=== PATIENT | female | born 1980 | race Hispanic/Latino ===

== ENCOUNTER 2019-01-13 19:45 | Inpatient (IN) ==
[2019-01-13 20:05] LABS: BASO# 0.05 X1000 (0.0-0.2); BASO% 0.7 % (0.0-0.8); EOS# 0.07 X1000 (0.0-0.7); HEMATOCRIT 34.3 % (37.0-47.0); HEMOGLOBIN 11.5 g/dL (12.0-16.0); LYMPH# 3.28 X1000 (1.2-3.4); MCH 27.8 PG (27-31); MCHC 33.5 g/dL (33-37); MCV 83.1 FL (81-99); MONO# 0.62 X1000 (0.11-0.59); MONO% 9.3 % (1.7-9.3); MPV 10.7 FL (7.4-10.4); NEUT# 2.68 X1000 (1.4-6.5); PLT 273 X1000 (130-400); RBC 4.13 XMIL (4.2-5.4); RDW 14.1 % (11.5-14.5)
[2019-01-13 20:37] LABS: BILIRUBIN URINE NEGATIVE (NEGATIVE); BLOOD URINE NEGATIVE (NEGATIVE); CLARITY CLEAR (CLEAR); COLOR YELLOW; GLUCOSE URINE NEGATIVE (NEGATIVE); KETONE URINE NEGATIVE (NEGATIVE); LEUKOCYTES URINE NEGATIVE (NEGATIVE); NITRITE URINE NEGATIVE (NEGATIVE); PROTEIN URINE NEGATIVE (NEGATIVE); UROBILINOGEN URINE NORMAL
[2019-01-13 20:43] LABS: UR AMPHETAMINES QUAL NONE DETECTED (NONE DETECT); UR BARBITUATES QUAL NONE DETECTED (NONE DETECT); UR BENZODIAZEPIN QUAL NONE DETECTED (NONE DETECT); UR CANNABINOIDS QUAL NONE DETECTED (NONE DETECT); UR COCAINE QUAL NONE DETECTED (NONE DETECT); UR METHADONE QUAL NONE DETECTED (NONE DETECT); UR METHAMPHETAMINE QUAL NONE DETECTED (NONE DETECT); UR OPIATES QUAL NONE DETECTED (NONE DETECT); UR OXYCODONE QUAL NONE DETECTED (NONE DETECT); UR PCP QUAL NONE DETECTED (NONE DETECT); UR PROPOXYPHENE QUAL NONE DETECTED (NONE DETECT); UR TCA QUAL NONE DETECTED (NONE DETECT)
[2019-01-13 20:50] LABS: URINE BACTERIA NEGATIVE /HFP; URINE EPITHELIAL CELLS <10 /HPF (<10); URINE YEAST NONE SEEN /HPF
[2019-01-13 20:51] LABS: URINE CAST NONE SEEN /LPF; URINE CRYSTAL NONE SEEN /HPF; URINE SOURCE CATH
--- NOTE | 2019-01-13 21:07 | PROVIDER DOCUMENTATION ---
This chart was entered by Keena Yen Scribe, acting as scribe for Melissa Salgado MD. [id number] Abuse/Overdose - General Chief Complaint: Overdose Stated Complaint: OD Time Seen by Provider: 01/13/19 19:45 Source: family, EMS Allergies/Adverse Reactions: Allergies Allergy/AdvReac Type Severity Reaction Status Date / Time No Known Allergies Allergy Verified 05/03/18 05:06 Home Medications: Home Medication List Medication Instructions Recorded Confirmed Last Taken Type Amoxicillin/Potassium Clav 1 ea PO BID #20 tab 04/30/18 05/03/18 Unknown Rx [Augmentin 875-125 Tablet] Dicyclomine HCl 20 mg PO Q6H PRN PRN #20 tab 04/30/18 05/03/18 Unknown Rx Omeprazole 20 mg PO DAILY #20 tablet. 04/30/18 05/03/18 Unknown Rx Ondansetron [Ondansetron Odt] 4 mg PO Q6-8H PRN PRN #20 04/30/18 05/03/18 Unknown Rx tab.rapdis Hydrocodone/APAP 7.5 mg/325 mg 7.5 mg PO Q4H PRN #20 tab 05/09/18 Unknown Rx [[place]-7.5] - History of Present Illness-Drug/Alcohol Nature of Presenting Problem: 38 yof presents w/daughter to er w/ daughter and ems who are historians. ems sts intentional od [employer]. pt had pills in mouth still when found. pt daughter sts there is family stress going on, daughter is going to live with her dad and stepmom. daughter sts pt told her boyfriend she loved him and he asked what she was doing and she had ingested pills and still had some in mouth. pt had empty containers of omeprazole 20mg (prescribed 05-01-18) and 40mg (prescribed 02-05), tessalon 100mg (prescribed 07-03-18) and bentyl 20mg (prescribed 05-01-18) near her, no other pills found and no other medications available to pt. On arrival pt alert and interactive. speaks only lao but appears oriented and appropriate to family who are translating for pt Review of Systems - Adult - REVIEW OF SYSTEMS - ADULT Constitutional: reports: no symptoms reported. denies: chills, fever, fatique Eyes: reports: no symptoms reported Ears, Nose, Mouth & Throat: reports: no symptoms reported Cardiovascular: reports: no symptoms reported Respiratory: reports: no symptoms reported Gastrointestinal: reports: no symptoms reported Genitourinary: reports: no symptoms reported Musculoskeletal: reports: no symptoms reported Integumentary: reports: no symptoms reported Neurological: reports: no symptoms reported Psychiatric: reports: see HPI, emotional problems (family stress), other ( intentional OD). denies: anti-depressant use, alcohol/drug dependence, depression Endocrine: reports: no symptoms reported Hematologic/Lymphatic: reports: no symptoms reported Allergic/Immunologic: reports: no symptoms reported All Other Systems: Reviewed and Negative Past History - Adult - PAST MEDICAL HISTORY-ADULT Review of Records: reports: Old Records Reviewed, Nursing Assessment Review, Medications Reviewed, Social history reviewed & non-contributory. Major Childhood Illnesses: reports: denies history Cardiovascular: reports: denies history Respiratory: reports: denies history Gastrointestinal: reports: denies history Obstetrical/Gynecological: reports: denies history Genitourinary: reports: denies history Musculoskeletal: reports: denies history Neurological: reports: denies history Psychiatric: reports: depression Endocrine/Immune: reports: denies history Other Conditions: reports: denies history - PRIOR SURGERIES/PROCEDURES Surgical/Procedure History: reports: BTL, - IMMUNIZATION STATUS Childhood Immunizations: See Nurse Assessment Flu Vaccine: See Nurse Assessment - FAMILY HISTORY Family History: reviewed, not pertinent - SOCIAL HISTORY Smoking: non-smoker Substance Use: alcohol Alcohol Use Frequency: occasionally Physical Exam-General - PHYSICAL EXAM-ADULT Initial Vital Signs Reviewed: Yes - CONSTITUTIONAL General Appearance: alert, no apparent distress. negative: obtunded, combative - EYES Eyes: PERRL/EOMI, pink conjunctivae - HEAD, EARS, NOSE, MOUTH & THROAT HENMT: normocephalic/atraumatic, moist mucous membranes, normal ENT inspection - NECK Neck: non-tender, full range of motion, supple, normal inspection - RESPIRATORY Respiratory: chest non-tender, lungs clear, normal breath sounds - CARDIOVASCULAR Cardiovascular: normal peripheral pulses, regular rate, rhythm - GASTROINTESTINAL (ABDOMEN) Abdominal Exam: normal bowel sounds, non tender, soft - LYMPHATIC Lymphatic: no adenopathy - MUSCULOSKELETAL Back Exam: normal inspection, no CVA tenderness, no vertebral tenderness Extremity: normal range of motion, non-tender, normal inspection Peripheral Pulses: radial (R): 2+, radial (L): 2+ - SKIN Integumentary: normal color, normal turgor, warm/dry - NEUROLOGIC Neurologic: grossly normal, no motor/sensory deficits - PSYCHIATRIC Psych/Mental Status: normal mood/affect, normal thought content, normal thought process, oriented x 3 Progress - PLAN OF CARE/RESULTS Progress/Plan/Lab Results: Vital Signs - 8 hr 01/13/19 19:46 Temperature 97.9 F Pulse Rate 68 Respiratory Rate 12 Blood Pressure 144/69 O2 Sat by Pulse Oximetry 100 Laboratory Results - last 24 hr 01/13/19 01/13/19 01/13/19 19:50 19:54 19:54 WBC 6.70 RBC 4.13 L Hgb 11.5 L Hct 34.3 L MCV 83.1 MCH 27.8 MCHC 33.5 RDW Std Deviation 14.1 Plt Count 273 MPV 10.7 H Immature Gran % (Auto) 0.0 Neut % (Auto) 40.0 L Lymph % (Auto) 49.0 [place] % (Auto) 9.3 Eos % (Auto) 1.0 Baso % (Auto) 0.7 Immature Gran # (Auto) 0.00 Neut # (Auto) 2.68 Lymph # (Auto) 3.28 Eagle # (Auto) 0.62 H Eos # (Auto) 0.07 Baso # (Auto) 0.05 Sodium Potassium Chloride Carbon Dioxide Anion Gap BUN Creatinine Estimated GFR/1.73 m2 BUN/Creatinine Ratio Glucose Calculated Osmolality Calcium Total Bilirubin AST ALT Alkaline Phosphatase Total Protein Albumin Globulin Albumin/Globulin Ratio Urine Source CATH Urine Color YELLOW Urine Clarity CLEAR Urine pH 7.0 Ur Specific [place] 1.000 Urine Protein NEGATIVE Urine Ketones NEGATIVE Urine Blood NEGATIVE Urine Nitrite NEGATIVE Urine Bilirubin NEGATIVE Urine Urobilinogen NORMAL Urine Microscopic RBC Not Reportable Urine WBC NEGATIVE Ur Epithelial Cells <10 Urine Crystals NONE SEEN Urine Bacteria NEGATIVE Urine Casts NONE SEEN Urine Yeast NONE SEEN Urine Glucose NEGATIVE Salicylates Urine Opiates Screen NONE DETECTED Ur Oxycodone Screen NONE DETECTED Urine Methadone Screen NONE DETECTED U Propoxyphene Qual NONE DETECTED Acetaminophen Ur Barbituates Screen NONE DETECTED Ur Tricyclics Screen NONE DETECTED Ur Phencyclidine Scrn NONE DETECTED Ur Amphetamines Screen NONE DETECTED U Methamphetamines Scrn NONE DETECTED U Benzodiazepines Scrn NONE DETECTED Urine Cocaine Screen NONE DETECTED U Cannabinoids Screen NONE DETECTED Plasma/Serum Ethyl Alc 05/26/19 05/26/19 20:30 20:30 WBC RBC Hgb Hct MCV MCH MCHC RDW Std Deviation Plt Count MPV Immature Gran % (Auto) Neut % (Auto) Lymph % (Auto) [place] % (Auto) Eos % (Auto) Baso % (Auto) Immature Gran # (Auto) Neut # (Auto) Lymph # (Auto) [place] # (Auto) Eos # (Auto) Baso # (Auto) Sodium 141 Potassium 3.6 Chloride 105 Carbon Dioxide 25 Anion Gap 10 BUN 10 Creatinine 0.5 Estimated GFR/1.73 m2 > 60 BUN/Creatinine Ratio 20 Glucose 98 Calculated Osmolality 280 Calcium 8.5 L Total Bilirubin 1.00 AST 16 ALT 11 Alkaline Phosphatase 63 Total Protein 7.2 Albumin 4.2 Globulin 3.0 Albumin/Globulin Ratio 1.0 Urine Source Urine Color Urine Clarity Urine pH Ur Specific [place] Urine Protein Urine Ketones Urine Blood Urine Nitrite Urine Bilirubin Urine Urobilinogen Urine Microscopic RBC Urine WBC Ur Epithelial Cells Urine Crystals Urine Bacteria Urine Casts Urine Yeast Urine Glucose Salicylates < 3.00 L Urine Opiates Screen Ur Oxycodone Screen Urine Methadone Screen U Propoxyphene Qual Acetaminophen < 1.2 L Ur Barbituates Screen Ur Tricyclics Screen Ur Phencyclidine Scrn Ur Amphetamines Screen U Methamphetamines Scrn U Benzodiazepines Scrn Urine Cocaine Screen U Cannabinoids Screen Plasma/Serum Ethyl Alc Orders Category Date Time Status Admit [facility] Routine AdmDCTranf 01/13/19 21:37 Active Call Admitting on Arrival AT ADMISSION Care 01/13/19 21:38 Active Cardiac Monitoring DIRECTED Care 01/13/19 21:41 Active IV Insertion ORDERED Care 01/13/19 19:51 Active Neurological Check Q2H Care 01/13/19 21:37 Active Vital Signs Order ROUTINE Care 01/13/19 21:37 Active Sitter List [OM.CSS] Stat Cons 01/13/19 21:41 Active ACETAMINOPHEN [TDM] Stat Lab 01/13/19 20:30 Completed ALCOHOL BLOOD Stat Lab 01/13/19 20:30 Completed BASIC METABOLIC PANEL [CHEM] Timed Lab 01/14/19 06:00 Ordered CBC WITH DIFF [HEME] Stat Lab 01/13/19 19:50 Completed CBC WITH ELECTRONIC DIFF [HEME] Timed Lab 01/14/19 06:00 Ordered COMPREHENSIVE METABOLIC PANEL [CHEM] Stat Lab 01/13/19 20:30 Completed SALICYLATES [TDM] Stat Lab 01/13/19 20:[address] W/POSS RFLX CULT [URINALYSIS] Stat Lab 01/13/19 19:54 Completed URINE DRUG SCREEN PL Stat Lab 01/13/19 19:54 Completed EKG [EKG] RTQ6H Ther 01/14/19 10:00 Ordered EKG [EKG] RTQ6H Ther 01/14/19 16:00 Ordered EKG [EKG] RTQ6H Ther 01/14/19 22:00 Ordered Transfer/Admit Order [TRANSFER] Routine Transfer 01/13/19 21:40 Ordered intentional overdose pt alert and oriented and with stable vitals. Will closely observe and will further evaluate for co-ingestants. Result Diagrams: 01/13/19 19:50 01/13/19 20:30 - REASSESSMENT Reassessment #1 Status: worsening (Pt now confused and appears to be responding to visual hallucinations. Family states pt is not making sense and taking about parties. Appears to be having anticholinergic symtpoms. No tachycardia or hypertension. no EKG changes. Discussed case with poison control who feel that these symptoms are likley from bentyl as these can cause anticholinergic type symptoms. other ingestants are non toxic. recommend admission with continuous cardiac monitoring until symptoms clear. Discussed case with Dr. Alberts, hospitalist, who accepts pt for admission and asks that floor orders be placed) - EKG 1 Time of EKG reading by physician:: 19:51 EKG Read and Signed by:: Melissa Salgado EKG Interpretation (*Must complete 3 of following elements*): Abnormal Rate: 67 Rhythm: SR w/1st degree av block [place]: normal QRS: normal NE Interval: prolonged ST Wave: normal Comments: poss left atrial enlargement Departure - Departure Date of Disposition Decision: 01/13/19 Time of Disposition Decision: 21:57 DIAGNOSIS: Overdose Qualifiers: Encounter type: initial encounter Injury intent: intentional self-harm Qual ified Code(s): T50.902A - Poisoning by unspecified drugs, medicaments and biological substances, intentional self-harm, initial encounter Disposition: ADMITTED INPATIENT 09 Certified Medical Emergency: Emergent Condition: Serious Referrals and Follow-Ups: None,PCP [Primary Care Provider] - - Critical Care Note This patient required my direct & personal management of CC.: Yes Total Time (mins): 35 Critical Care Statement: This patient required my direct personal management to treat or rule out processes, the absence of which, could potentiallly result in sudden, clinically significant life or limb threatening deterioration. Attestation - Physician/ ARMAAN Attestation Patient care was provided by Advanced Practice Provider:: No The physician spent face to face time with patient:: Yes Advanced Practice Provider documentation review:: Supervising physician onsite and consulted in the evaluation and care of this patient. The physician did have a face to face encounter with the patient. This chart was documented by the indicated scribe, (Keena Yen, Katerine) and accurately reflects the services I performed and decisions made by me, Melissa Salgado MD, as attested by the provider's signature.
[2019-01-13 21:10] LABS: ACETAMINOPHEN < 1.2 ug/mL (10-30); AGAP 10; ALBUMIN 4.2 g/dL (3.5-5.0); ALKALINE PHOSPHATASE 63 U/L (32-104); BUN 10 mg/dL (8-22); CALCIUM 8.5 mg/dL (8.8-10.2); CHLORIDE 105 mmol/L (98-107); COSMO 280; CREATININE 0.5 mg/dL (0.5-0.9); ESTIMATED GFR > 60; GLUCOSE 98 mg/dL (70-104); GOT 16 U/L (10-30); GPT 11 U/L (10-36); POTASSIUM 3.6 mmol/L (3.5-5.1); SALICYLATES < 3.00 mg/dL (3-10); SODIUM 141 mmol/L (136-145); TCO2 25 mmol/L (25-35); TOTAL PROTEIN 7.2 g/dL (6.3-8.3)
[2019-01-14 07:24] LABS: BASO# 0.02 X1000 (0.0-0.2); BASO% 0.4 % (0.0-0.8); EOS# 0.05 X1000 (0.0-0.7); EOS% 0.9 % (0.0-10.0); HEMATOCRIT 33.6 % (37.0-47.0); HEMOGLOBIN 10.6 g/dL (12.0-16.0); IMM GRAN# 0.01 X1000 (0.0-0.04); IMM GRAN% 0.2 % (0.0-0.5); LYMPH# 1.53 X1000 (1.2-3.4); LYMPH% 27.8 % (20.5-51.1); MCH 26.4 PG (27-31); MCHC 31.5 g/dL (33-37); MCV 83.6 FL (81-99); MONO# 0.48 X1000 (0.11-0.59); MONO% 8.7 % (1.7-9.3); MPV 10.8 FL (7.4-10.4); NEUT# 3.41 X1000 (1.4-6.5); PLT 270 X1000 (130-400); RBC 4.02 XMIL (4.2-5.4); RDW 14.3 % (11.5-14.5)
[2019-01-14 07:31] LABS: AGAP 11; BUN 10 mg/dL (8-22); CALCIUM 8.3 mg/dL (8.8-10.2); CHLORIDE 108 mmol/L (98-107); COSMO 281; CREATININE 0.5 mg/dL (0.5-0.9); ESTIMATED GFR > 60; GLUCOSE 81 mg/dL (70-104); POTASSIUM 3.6 mmol/L (3.5-5.1); SODIUM 142 mmol/L (136-145); TCO2 24 mmol/L (25-35)
[2019-01-14] MEDS ORDERED: ZOFRAN IV PRN (07:52)
[2019-01-14] MEDS: NS 1,000 ML IV SCH ×2 (08:59→11:00)
[2019-01-14] MEDS: CARAFATE LIQUID PO SCH ×3 (08:59→21:17)
[2019-01-14] MEDS ORDERED: NS 1,000 ML IV SCH (10:00)
--- NOTE | 2019-01-14 11:01 | EKG Report ---
Test Performed on : 01/14/2019 10:55:14 AM Test Reason : overdose Blood Pressure : / mmHG Vent. Rate : 066 BPM Atrial Rate : 066 BPM P-R Int : 184 ms QRS Dur : 072 ms QT Int : 424 ms P-R-T Axes : 072 088 057 degrees QTc Int : 444 ms Normal sinus rhythm. Normal ECG When compared with ECG of 13-JAN-2019 19:48, (Unconfirmed) ID interval has decreased Unconfirmed Result
--- NOTE | 2019-01-14 13:01 | HISTORY AND PHYSICAL ---
CHIEF COMPLAINT: Overdose. HISTORY OF PRESENT ILLNESS: This is a 38-year-old female who presented to the emergency room via EMS after being called by family members. At the time of my evaluation, the patient is lying on the bed in ICU. She does not speak Congolese well, refuses to use a language line. There are no family members present, so history is taken from the chart and the nursing staff. Evidently, the patient became very upset after finding that her daughter was going to live with her father and her stepmother. Reportedly, the patient told her boyfriend she loved him and took pills. The pills were in her mouth. Reportedly at this time she informed her boyfriend that she had taken pills. In fact, she still has some in her mouth. It is unsure of how many she took or at what time she took these. It is reported that she had empty containers of omeprazole 20 mg, omeprazole prescribed 05/01/2018, Bentyl 20 mg prescribed 05/01/2018, omeprazole 40 mg prescribed January 2018, and Tessalon Perles 100 mg prescribed 07/03/2018, although we are unsure how many had been taken prior. PAST MEDICAL HISTORY: Reported to be depression. PAST SURGICAL HISTORY: 1. . 2. Tubal ligation. SOCIAL HISTORY: She denies tobacco use. Social alcohol use and no illicit drug use. ALLERGIES: None reported. HOME MEDICATIONS: No regular medications reported. REVIEW OF SYSTEMS: Unable to obtain from the patient at this time as she continues to refuse to use language line and no family members are present. According to the chart, in the ER, the patient and family members stated that all systems are negative except for family stress. PHYSICAL EXAMINATION: GENERAL: This is a 38-year-old female who is lying in the bed in ICU in no distress. VITAL SIGNS: Blood pressure is 101/52 with a heart rate of 86, respirations 18, temperature is 99.2 degrees temporal with room air saturations 99%. EYES: Pupils are equal, round, react to light. EOMs are intact. Sclerae are anicteric. HEENT: Head is normocephalic, atraumatic. Mucous membranes are moist. NECK: Supple with trachea midline. CARDIOVASCULAR: Regular rate and rhythm. S1 and S2 appreciated. She has no lower extremity edema with peripheral pulses palpable x4 extremities. PULMONARY: Breath sounds are clear with no increased work of breathing noted. Chest rises and falls with symmetric respiration. Chest wall is nontender to palpation. GASTROINTESTINAL: Abdomen is soft, nontender, nondistended. Bowel sounds in all 4 quadrants. GENITOURINARY: She has no CVA or suprapubic tenderness. SKIN: Warm and dry. NEUROLOGIC: The patient is awake and alert. She moves extremities at random. She has limited Congolese. She does follow simple commands as given. LABORATORY DATA: WBC is 6.7 with hemoglobin 11.5, hematocrit 34.3, and platelets of 273,000. Sodium is 141, potassium 3.6, BUN 10, creatinine 0.5 with a glucose of 98. Urinalysis is essentially negative. Urine drug screen reveals none detected. Blood alcohol reveals none detected with salicylate less than 3 and acetaminophen less than 1.2. EKG revealed sinus rhythm at a rate of 66. ASSESSMENT AND PLAN: 1. Intentional overdose with unknown medications which could have consisted of Tessalon Perles, Bentyl and omeprazole. We will monitor for any anticholinergic overdose. We discuss with poison Control. Once she is medically cleared, we will call [facility] for evaluation. We will repeat a CBC and CMP this morning. Take neuro checks q.4 hours. 2. For deep venous thrombosis prophylaxis, will use sequential compression devices. 3. Nausea, vomiting. Will give use Carafate liquid as well as Zofran IV. 4. Gastrointestinal prophylaxis. We will start Protonix in the morning. Of course, we will continue telemetry. As there is a chance of anticholinergic overdose, will scan her bladder for any signs of urinary retention. Further treatments pending hospital course and discussion with Dr. Cid. Dictated by SUHAIL Johnson for Javon Cid MD cc: SUHAIL Johnson MD
--- NOTE | 2019-01-14 14:59 | HISTORY AND PHYSICAL ---
Patient seen and examined by me. Full note dictated and discussed with nurse practitioner. Patient through translation had an intentional overdose with Bentyl, omeprazole, and Tessalon Perles. We will admit her to the hospital ICU, place her on telemetry, observe her for withdrawal symptoms, and we will follow. On discharge, she will need evaluation by [facility]. cc: Javon Cid MD
--- NOTE | 2019-01-14 16:20 | EKG Report ---
Test Performed on : 01/14/2019 3:35:41 PM Test Reason : Q6 HR Blood Pressure : / mmHG Vent. Rate : 067 BPM Atrial Rate : 067 BPM P-R Int : 182 ms QRS Dur : 078 ms QT Int : 396 ms P-R-T Axes : 068 074 045 degrees QTc Int : 418 ms Normal sinus rhythm. Normal ECG When compared with ECG of 14-JAN-2019 10:55, (Unconfirmed) No significant change was found Unconfirmed Result
[2019-01-15] MEDS: NS 1,000 ML IV SCH (00:08)
[2019-01-15] MEDS: CARAFATE LIQUID PO SCH ×3 (01:26→14:07)
--- NOTE | 2019-01-15 03:46 | EKG Report ---
Test Performed on : 01/14/2019 10:22:11 PM Test Reason : overdose Blood Pressure : / mmHG Vent. Rate : 075 BPM Atrial Rate : 075 BPM P-R Int : 194 ms QRS Dur : 076 ms QT Int : 394 ms P-R-T Axes : 068 056 048 degrees QTc Int : 439 ms Poor data quality, interpretation may be adversely affected Normal sinus rhythm. Normal ECG When compared with ECG of 14-JAN-2019 15:35, (Unconfirmed) No significant change was found Unconfirmed Result
[2019-01-15 06:52] LABS: BASO# 0.03 X1000 (0.0-0.2); BASO% 0.6 % (0.0-0.8); EOS# 0.09 X1000 (0.0-0.7); EOS% 1.7 % (0.0-10.0); HEMATOCRIT 29.4 % (37.0-47.0); HEMOGLOBIN 9.4 g/dL (12.0-16.0); IMM GRAN# 0.01 X1000 (0.0-0.04); IMM GRAN% 0.2 % (0.0-0.5); LYMPH# 1.99 X1000 (1.2-3.4); LYMPH% 38.1 % (20.5-51.1); MCH 26.9 PG (27-31); MONO# 0.39 X1000 (0.11-0.59); MONO% 7.5 % (1.7-9.3); MPV 10.7 FL (7.4-10.4); NEUT# 2.71 X1000 (1.4-6.5); NEUT% 51.9 % (42.2-75.2); PLT 222 X1000 (130-400); RDW 14.2 % (11.5-14.5); WBC 5.22 X1000 (4.8-10.8)
[2019-01-15] MEDS ORDERED: PROTONIX PO SCH (07:00)
[2019-01-15 07:05] LABS: AGAP 8; ALBUMIN 3.5 g/dL (3.5-5.0); ALKALINE PHOSPHATASE 52 U/L (32-104); BUN 8 mg/dL (8-22); CALCIUM 7.7 mg/dL (8.8-10.2); CHLORIDE 108 mmol/L (98-107); CK TOTAL 34 U/L (24-173); COSMO 273; CREATININE 0.4 mg/dL (0.5-0.9); ESTIMATED GFR > 60; GLUCOSE 83 mg/dL (70-104); GOT 12 U/L (10-30); GPT 7 U/L (10-36); POTASSIUM 3.6 mmol/L (3.5-5.1); SODIUM 138 mmol/L (136-145); TCO2 22 mmol/L (25-35); TOTAL PROTEIN 5.9 g/dL (6.3-8.3)
--- NOTE | 2019-01-15 10:24 | EKG Report ---
Test Performed on : 01/13/2019 7:48:24 PM Test Reason : ER Blood Pressure : / mmHG Vent. Rate : 067 BPM Atrial Rate : 067 BPM P-R Int : 214 ms QRS Dur : 078 ms QT Int : 388 ms P-R-T Axes : 060 057 044 degrees QTc Int : 409 ms Sinus rhythm. with 1st degree AV block. Possible Left atrial enlargement Borderline ECG When compared with ECG of 06-MAY-2018 16:56, ND interval has increased Vent. rate has decreased BY 33 BPM QT has shortened Unconfirmed Result
[2019-01-15 11:30] VITALS: BP 103/54
--- NOTE | 2019-01-15 15:35 | DISCHARGE SUMMARY ---
ADMISSION DATE: 01/13/2019 DISCHARGE DATE: 01/15/2019 DIAGNOSES: 1. Intentional overdose with unknown medications. 2. Nausea, vomiting resolved. HOSPITAL COURSE: Ms Morley presented to the emergency room via EMS after having her boyfriend find that she had taken pills. It is unsure exactly the pills she took or the amount of pills. All that is for sure is that she had bottles of omeprazole 20 mg, omeprazole 40 mg, Bentyl 20 mg and Tessalon Perles all that were prescribed in 2018. The boyfriend did find her with whole pills in her mouth. She has reports being upset. Poison Control was called. She was monitored for 24 hours as per their recommendation. She was evaluated by [facility]. According to this interview the patient stated that she has been sad and crying. There has been a lot of conflict in her family that her daughter is going to live with her ex- and she is sad because of this. She has great fear about losing her job. [facility] did offer the patient assistance for placement and the patient refused. [facility] did obtain a refusal for treatment. production staff worker did provide a phone number to the [facility] to the patient as they will see the patient without having insurance. The social worker delinquency prevention attempted to assist the patient and a family member and calling to schedule an appointment but at this time they stated they did not want her help. Has been provided to the patient's RN to give in discharge instructions. Ms Morley denies any suicidal ideation. She states she is embarrassed at this. She states she does want to live and she does want to be with her family. DISCHARGE PHYSICAL EXAM: Vital signs: Blood pressure is 103/54 with a heart rate of 77, respirations are 18, temperature is 98.4 degrees oral with room air saturations 98-100%. HEENT: Pupils are equal, round, react to light. EOMs are intact. Sclerae anicteric. Head is normocephalic, atraumatic. Mucous membranes are moist. Neck: Is supple, trachea midline. Cardiovascular: Regular rate and rhythm. S1 and S2 appreciated. Pulmonary: Breath sounds are clear with no increased work of breathing noted. Gastrointestinal: Abdomen soft, nontender, nondistended. Bowel sounds in all 4 quadrants. Neurologic: She is alert, oriented x3. Extremities: No clubbing, cyanosis or edema. Calves are nontender bilateral. Peripheral pulses are palpable x4 extremities. DISCHARGE MEDICATIONS: None. FOLLOWUP: Once again the patient will be given the number to [facility] to call in the morning to schedule an appointment. She has been given these instructions verbally as well as being given in writing on her discharge papers. She has been instructed to return to the emergency room for any thoughts of harming herself, for increasing sadness and grief as precipitated this event, for any syncope, dizziness, chest pain, palpitations, any shortness of breath, cough, fever, chills, any nausea, vomiting, diarrhea, constipation, black or bloody vomitus or stools, hematuria, dysuria, frequency urgency or for any concerns that she may have. She is being discharged home in stable condition with family members. TIME SPENT: Greater than 30 minutes. Dictated by SUHAIL Johnson for Javon Cid MD cc: SUHAIL Johnson MD
--- NOTE | 2019-01-16 00:35 | DISCHARGE SUMMARY ---
ADMISSION DATE: 01/13/2019 DISCHARGE DATE: 01/15/2019 DISCHARGE DIAGNOSIS: 1. Suicide attempt with intentional overdose in a patient who now states that she is no longer suicidal. 2. Depression. CONSULTATIONS: [facility]. PROCEDURES: None. BRIEF HOSPITAL COURSE: The patient is a 38-year-old female who presented to the hospital complaints of suicide attempt with overdose. She was watched for 36 hours. She had no complaints. Physical exam was unchanged. Vital signs are stable. Labs were stable. DISPOSITION: Certainly would have preferred patient to go to [facility] although she declined. Therefore she will be discharged home. She did signed a no-harm contract and states that she has no desire to hurt herself in the future. cc: Javon Cid MD
== END 2019-01-15 15:04 | disposition home or self-care (01) | DRG 918 ==
LOC: P.ED 19:45 → P.ICU 23:27 → SUATTDRO 23:27 → P.MEDSURG 01-14 18:31
PROVIDERS: ATTEND Family Medicine
CPT/HCPCS: 80048; 80053; 80104; 80196; 80301; 80305; 80307; 80320; 80324; 80329; 81001; 82003; 82055; 82550; 85025; 93005; 99285; A9270; G0431; G0434; G0477; G0480; G6038; G6039; G6040; J7030